=== PATIENT | male | born 1995 | race Caucasian/White ===

== ENCOUNTER 2023-10-15 09:21 | Emergency (ER) | payer OTHER, SELFPAY ==
[2023-10-15 09:29] VITALS: BP 160/103
[2023-10-15 10:08] VITALS: BP 138/113
[2023-10-15 10:20] LABS: % Basophils 0.4 % (0-2); % Eosinophils 3.2 % (0-6); % Immature Granulocytes 0.4 % (0-0.5); % Lymphocytes 20.9 % (20.5-51.1); % Monocytes 9.1 % (1.7-9.3); Absolute Eosinophils 0.2 10^3/uL (0-0.7); Absolute Lymphocytes 1.4 10^3/uL (1.2-3.4); Absolute Monocytes 0.6 10^3/uL (0.1-0.6); Absolute Neutrophils 4.6 10^3/uL (1.4-6.5); Hematocrit 47.6 % (39.0-52.0); Hemoglobin 16.4 g/dL (13.0-18.0); Mean Corp Hgb Conc. 34.5 g/dL (33.0-37.0); Mean Corpuscular Hgb 30.7 pg (27.0-31.0); Mean Corpuscular Volume 89.1 fL (80.0-94.0); Mean Platelet Volume 9.3 fL (7.4-10.4); Nucleated Red Blood Cells % 0 % (-); Platelet Count 295 10^3/uL (130-400); Red Blood Cell Count 5.34 10^6/uL (4.70-6.10); Red Cell Dist. Width 12.2 % (11.5-14.5); White Blood Cell Count 6.9 10^3/uL (4.8-10.8)
[2023-10-15 10:30] LABS: ALT (SGPT) 48 U/L (0-50); AST (SGOT) 31 U/L (17-59); Albumin 4.5 g/dl (3.5-5.0); Alkaline Phosphatase 31 U/L (38-126); Blood Urea Nitrogen 14 mg/dl (9-20); Calcium 9.8 mg/dl (8.4-10.2); Carbon Dioxide 26 mmol/L (22-30); Chloride 106 mmol/L (98-107); Glucose 97 mg/dl (70-99); Potassium 4.5 mmol/L (3.5-5.1); Sodium 140 mmol/L (135-145); Total Bilirubin 1.1 mg/dl (0.2-1.3); Total Protein 7.2 g/dl (6.3-8.2); eGFR > 60.00
[2023-10-15 11:00] VITALS: BP 134/85
[2023-10-15] MEDS: TORADOL 30 MG IV (11:04)
[2023-10-15] MEDS: NSS 1000 IV (11:04)
[2023-10-15] MEDS: BENADRYL 50 MG IV (11:04)
[2023-10-15] MEDS: REGLAN 10 MG IV (11:04)
[2023-10-15 11:49] LABS: TSH Reflex To Free T4 1.35 uIU/ml (0.47-4.68)
--- NOTE | 2023-10-15 12:14 | ED.GENMED ---
History of Present Illness
General
Chief Complaint: Headache
Source: patient
Exam Limitations: none
Time Seen by Provider: 10/15/23 10:01
Nursing documentation reviewed up to this point in time: agreed with
Travel History
Have you had any contact with someone who has COVID-19?: No
Do you have any symptoms of coronavirus? Fever > 100 degrees, chills, cough, shortness of breath, sore throat, loss of taste or smell, muscle aches, or headache?: No
History of Present Illness
History of Present Illness:
28-year-old male with past medical history of thyroid disease presenting to the emergency department today with concerns of headache somewhat persistent over the past week worse during the day but at night seems to be worse with stress has been very
stressed recently. Denies any official diagnosis of migraine. Denies numbness weakness chest pain shortness of breath. No recent trauma.
Review of Systems
Review of Systems
Allergies reviewed?: Yes
All Other Systems: ROS reviewed and negative except as documented in HPI and ROS
Phy Exam
Physical Exam
Physical Exam:
GENERAL: Alert , in no apparent distress
EYE: pupils equal and reactive
NECK: Supple, no significant adenopathy.
ENT: o/p clr, mmm.
CARDIAC: Regular rate and rhythm .
LUNGS: Clear breath sounds bilaterally, no acute respiratory distress, no wheezes/rales/rhonchi
ABDOMEN: Soft, without focal tenderness, no r/g, no cvat
NEUROLOGICAL: Alert and oriented, no focal neuro deficits 5 out of 5 upper and lower extremity strength normal sensation with palpating bilaterally normal finger-nose and [id number] no pronator drift
SKIN: Warm and dry, skin intact.
MUSCULOSKELETAL: No edema, well perfused.
PSYCH: Normal and appropriate interaction.
Course
Orders/Labs/Results
Orders:
Orders
10/15/23 10:09
Complete Blood Count/With Diff Urgent
Comprehensive Metabolic Panel Urgent
TSH Reflex To Free T4 Urgent
Comment: ADDED
10/15/23 10:39
Add On- LAB Urgent
Tests Added?: tsh free t4
CT Head W/o Iv Contrast Urgent
Comment:
Reason For Exam: 1 week simms
0.9% Sodium Chloride 1000 ml [Nss] 1,000 ml IV BOLUS
Diphenhydramine [Benadryl] 50 mg IV NOW STA
Ketorolac [Toradol] 30 mg IV NOW STA
Metoclopramide [Reglan] 10 mg IV NOW STA
10/15/23 12:16
Dexamethasone Sod Phosphate [Decadron] 10 mg IV NOW STA
Abnormal Lab Results
10/15/23
10:09
Alkaline Phosphatase 31 L U/L
(38-126)
10/15/23 10:09
10/15/23 10:09
Vital Signs
Initial and Last Documented VS:
Initial Vital Signs
Temp Pulse Resp BP Pulse Ox
98.2 F 77 18 160/103 97
10/15/23 09:29 10/15/23 09:29 10/15/23 09:29 10/15/23 09:29 10/15/23 09:29
Last Documented Vital Signs
Temp Pulse Resp BP Pulse Ox
98.2 F 61 17 134/85 97
10/15/23 09:29 10/15/23 11:00 10/15/23 11:00 10/15/23 11:00 10/15/23 11:00
MDM/Problems Addressed
MDM/Problems Addressed:
28-year-old male presenting to the emergency department today with concerns of headache over the past week also some intermittent worse during the day and improves at night also is feeling some lightheadedness and worsening dizziness today. Upon
arrival blood pressure elevated otherwise vital signs are normal. This improved prior to treatment. Labs were obtained and unremarkable head CT negative. No neck pain no fevers unlikely to be meningitis no evidence of pathology was given cocktail
with significant symptoms. Patient appears stable for outpatient follow-up and given strict return precautions.
*Critical Care Note
Total Time (30-74mins, 75-104mins- exclusive of procedures): Not Applicable
ED Attending Note
-
Portions of this chart may have been created with voice recognition software.� Occasional wrong word or��sound alike� substitutions may have occurred due to the inherent limitations of voice recognition software.
Discharge Plan
Departure
Patient Disposition: Home (Routine Discharge)
Date of Disposition: 10/15/23
Time of Disposition: 12:17
Patient with high blood pressure during this ER visit?: No
Condition: Good
Covid-19: Not Applicable
Discharge Problem:
Headache
Instructions: Headache, Adult (DC)
Referrals:
Beltran Olivo MD [Active] - Call in 1-3 days for appt
Mo Mas DO [Family Provider] -
Activity Restrictions/Additional Instructions:
You came to the emergency department today with concerns of headache. Here you had a reassuring assessment. Please have close with neurology symptoms. Return to the emergency department for any worsening, new or concerning symptoms.
Interventions
Interventions:
*Risk Screen - Suicide Last Done: 10/15/23 09:29
*General Assessment Last Done: 10/15/23 09:29
*Neglect/Abuse Screening Last Done: 10/15/23 09:29
*ED COVID-19 Vaccine History Last Done: 10/15/23 09:29
ED- Neurological Assessment Last Done: 10/15/23 10:10
Discharge Date and Time
Print Language: SWISS
[2023-10-15] MEDS: DECADRON 10 MG IV (12:30)
[2023-10-15 12:33] VITALS: BP 130/73
== END 2023-10-15 12:40 | disposition home or self-care (01) ==
LOC: EMR 09:21
PROVIDERS: Physician Assistant; EMERGENCY PHYSICIAN Emergency Medicine; FAMILY PHYSICIAN Family Medicine
DX: R51.9 Headache, unspecified (principal); E07.9 Disorder of thyroid, unspecified
CPT/HCPCS: 99284; 96374; 96375 ×3; 96361; 70450; 80053; 84443; 85025